=== PATIENT | male | born 1940 | race Asian ===

== ENCOUNTER 2022-11-27 13:14 | Emergency (ER) | payer MEDICARE, MEDICAID ==
[~2022-11-27] VITALS: Ht 152.4 cm; Wt 55.0 kg
[~2022-11-27 13:14] MED LIST: AMLO-375 PO; DONE-53 PO; LEVE750T4 MT; MEGE20TA4 MT
[2022-11-27 13:24] VITALS: O2SAT 96
[2022-11-27] MEDS ORDERED: SODIUM CHLORIDE 0.9% 1,000 ML IV ONE (13:30)
[2022-11-27 13:59] LABS: BASOPHILS % 0.3 % (0.0-2.0); EOSINOPHILS % 1.9 % (0.0-5.0); HEMATOCRIT. 36.5 % (42.0-52.0); HEMOGLOBIN. 11.9 g/dL (14.0-18.0); LYMPHOCYTES % 13.1 % (20.0-50.0); MEAN CORPUSCULAR HGB CONC 32.7 g/dL (31.0-37.0); MEAN CORPUSCULAR VOLUME 94.7 fL (80.0-94.0); MEAN PLATELET VOLUME 6.7 fl (7.4-10.4); MONOCYTES % 8.6 % (2.0-8.0); NEUTROPHILS % 76.1 % (40.0-76.0); PLATELET 310 x1000/uL (130-400); RED BLOOD CELL COUNT 3.86 mill/uL (4.7-6.1); RED CELL DISTRIBUTION WIDTH 13.5 % (11.6-14.6); WHITE BLOOD COUNT 10.2 x1000/uL (4.5-11.0)
[2022-11-27 14:13] LABS: PROTHROMBIN TIME 10.4 sec (9.6-11.0)
[2022-11-27 14:14] LABS: CHLORIDE 107 mEq/L (98-107); INDEX HEMOLYSI 1 (1-3); INDEX ICTERIC 1 (1-4); INDEX LIPEMIC 1 (1-3); POTASSIUM 3.8 mEq/L (3.5-5.1); SODIUM 138 mEq/L (136-145)
[2022-11-27 14:22] LABS: ALANINE AMINOTRANSFERASE 23 IU/L (13-61); ALBUMIN 3.1 g/dL (3.4-5.0); ASPARTATE AMINOTRANSFERASE 17 IU/L (15-37); BILIRUBIN TOTAL 0.1 mg/dL (0.1-1.0); CALCIUM 8.7 mg/dL (8.5-10.1); CARBON DIOXIDE 26 mEq/L (21-32); CREATININE 0.7 mg/dL (0.6-1.3); GLUCOSE 99 mg/dL (70-105); PROTEIN TOTAL 7.8 g/dL (6.0-8.3); UREA NITROGEN BLOOD 14 mg/dL (7-21)
[2022-11-27] MEDS ORDERED: ACETAMINOPHEN 325MG TABLET PO ONE (15:00)
[2022-11-27 18:57] VITALS: BP 143/59; PULSE 74; RESP 16; TEMP 97.6
== END 2022-11-27 19:34 ==
LOC: ER 13:17
DX: M25.552 Pain in left hip (principal); R51.9 Headache, unspecified; I10 Essential (primary) hypertension; Z86.59 Personal history of other mental and behavioral disorders
CPT/HCPCS: 99285; 70450; 71045; 80053; 83605; 83690; 85025; 85610; 85730; 86850; 86900; 86901; 36415; 72170; 72125; 93005; J7030